=== PATIENT | female | born 1950 | race Caucasian/White ===

== ENCOUNTER 2019-10-15 14:35 | Emergency (ER) | payer MEDICARE ==
[2019-10-15] MEDS ORDERED: Bacitracin 1 PK ONE (15:02)
[2019-10-15] MEDS ORDERED: Adacel (T-DAP) 0.5 ML SYRINGE ONE (15:03)
--- NOTE | 2019-10-15 15:12 | RAD ---
Exam:2 views left forearm HISTORY: Pain COMPARISON: None FINDINGS: Internal fixation hardware along the distal radius and ulna. No perihardware lucency. No ac [place] fractures. IMPRESSION: Uncomplicated internal fixation hardware along the distal radius and ulna. No fracture.
--- NOTE | 2019-10-15 15:34 | RAD ---
LEFT HUMERUS TWO VIEWS: 10/15/19 HISTORY: Left arm pain. FINDINGS/IMPRESSION: The left humerus appears intact. POS: [facility]
--- NOTE | 2019-10-15 15:35 | RAD ---
LEFT ELBOW TWO VIEWS: 10/15/19 HISTORY: Fall, left elbow pain. FINDINGS/IMPRESSION: There is suggestion of a nondisplaced fracture involving the neck of the radius. POS: [facility]
== END 2019-10-15 15:45 | disposition home or self-care (01) ==
LOC: NAV ERS 14:35
DX: S52.124A Nondisplaced fracture of head of right radius, initial encounter for closed fracture (principal); E03.9 Hypothyroidism, unspecified; E11.9 Type 2 diabetes mellitus without complications; E78.5 Hyperlipidemia, unspecified; F32.9 Major depressive disorder, single episode, unspecified; Z79.82 Long term (current) use of aspirin; Z79.899 Other long term (current) drug therapy; Z23 Encounter for immunization; W01.0XXA Fall on same level from slipping, tripping and stumbling without subsequent striking against object, initial encounter
CPT/HCPCS: 29125; 90471; 90715